=== PATIENT | female | born 1945 | race Caucasian/White ===

== ENCOUNTER → 2024-01-08 | Outpatient (CLI) | payer OTHER, SELFPAY ==
[2024-01-08 14:09] LABS: OBS Card Expiration Date 2026/09; OBS Card Lot # 23001; OBS Performed By LAB; OBS QC OK? Yes
[2024-01-08 14:31] LABS: Parathyroid Hormone Intact 72.5 pg/ml (18.5-88.0)
[2024-01-08 14:32] LABS: Albumin, Serum 4.3 gm/dL (3.4-4.8); Anion Gap 5 (7-16); BUN/Creatinine Ratio 19 Ratio (12-20); Blood Urea Nitrogen 31 mg/dL (9-23); Calcium 9.6 mg/dL (8.3-10.6); Calcium (Corrected) 9.6 mg/dL (8.5-10.1); Carbon Dioxide 28.7 mMol/L (20.0-31.0); Chloride 108 mMol/L (98-107); Creatinine (Component) 1.6 mg/dL (0.6-1.3); Glucose 92 mg/dL (74-106); Osmolality,Calculated 289 (275-295); Phosphorous 3.5 mg/dL (2.4-5.1); Potassium 4.9 mMol/L (3.4-5.1); Sodium 142 mMol/L (136-145); eGFR 33 See Note
[2024-01-08 15:20] LABS: OBS Developer Lot # 23003; Occult Blood, Stool Positive (Negative); Occult Blood, Stool #2 Positive (Negative); Occult Blood, Stool #3 Negative (Negative)
== END | disposition home or self-care (01) ==
PROVIDERS: PCP Internal Medicine; Referring Provider Internal Medicine; Visit Provider Internal Medicine
DX: N18.30 Chronic kidney disease, stage 3 unspecified (principal); Z12.11 Encounter for screening for malignant neoplasm of colon
CPT/HCPCS: 36415; 80069; 82270; 83970

== ENCOUNTER 2024-02-20 23:06 | Emergency (ER) | payer OTHER, SELFPAY ==
[2024-02-20 23:07] VITALS: BMI 25.8
[2024-02-20 23:12] VITALS: BP 161/95; PULSE 73; RESP 22; TEMP 36.5; O2SAT 98
--- NOTE | 2024-02-20 23:18 | EKG_ITS ---
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
[2024-02-20 23:20] VITALS: BP 146/81; PULSE 65; RESP 20; TEMP 36.7; O2SAT 100
--- NOTE | 2024-02-20 23:33 | XR_ITS ---
Examination: PA chest single view Technique: Upright PA chest single view Exam date and time: February 20, 2024 1144 hrs. Comparison September 04, 2023 Indications: Shortness of breath today. Findings: Mild heart failure Mild enlargement cardiac contour Prominent vascular congestion with early septal edema at the lung bases Stable position cardiac leads 23 mm dense pneumonic consolidation versus pulmonary nodule in the right upper lobe Intact osseous structures Impression: Mild heart failure Findings most consistent with pneumonia in the right upper lobe, follow-up chest imaging is needed to document clearing of the focal parenchymal disease in the right upper lobe and exclude 23 mm pulmonary nodule
--- NOTE | 2024-02-20 23:33 | EDRME_ITS ---
Rapid Medical Screening Exam [facility] Arrival date/time: 02/20/24 23:06 78F with history of afib (has pacemaker/defib), asthma, and CHF presents to ED with several hours of SOB. Patient has had several days of nasal congestion, but denies cough. Chief Complaint: Shortness of Breath/Dyspnea Vital signs: Vital Signs Temperature 97.7 F 02/20/24 23:12 Pulse Rate 73 02/20/24 23:12 Respiratory Rate 22 H 02/20/24 23:12 Blood Pressure 161/95 H 02/20/24 23:12 Pulse Oximetry (%) 98 02/20/24 23:12 Oxygen Delivery Method Room Air 02/20/24 23:12
[2024-02-21] VITALS (7 sets, daily range): BP systolic 138–162; BP diastolic 87–113; PULSE 70–83; RESP 14–20; TEMP 36.3–36.8; O2SAT 97–100
[2024-02-21 00:03] LABS: Basophils % (Auto) 1 % (0-2.5); Eosinophils # (Auto) 0.2 Thou/mm3 (0.0-0.5); Eosinophils % (Auto) 3 % (0-10); Hematocrit 36.1 % (36.0-46.0); Hemoglobin 11.8 g/dL (12.0-16.0); Immature Granulocytes % (Auto) 0 % (0-0); Immature Granulocytes Auto 0.01 Thou/mm3 (0.00-0.00); Lymphocytes % (Auto) 21 % (10-50); Mean Corpuscular HGB Conc 32.7 g/dl (31.0-37.0); Mean Corpuscular Hemoglobin 31.1 pg (25.0-35.0); Mean Corpuscular Volume 95 fL (80-100); Monocytes # (Auto) 0.6 Thou/mm3 (0.0-0.8); Monocytes % (Auto) 12 % (0-12); Neutrophils # (Auto) 2.9 Thou/mm3 (1.8-7.7); Neutrophils % (Auto) 62 % (37-80); Nucleated Red Blood Cell % 0 /100 WBC (0); Platelet Count 156 Thou/mm3 (140-440); RDW Standard Deviation 48.5 fL (36.4-46.3); Red Blood Count 3.79 Miln/mm3 (4.00-5.20); White Blood Count 4.7 Thou/mm3 (3.6-11.0)
[2024-02-21 00:40] LABS: B-Type Natriuretic Peptide 249 pg/mL (0-100)
[2024-02-21 00:43] LABS: Alanine Aminotransferase 66 U/L (10-49); Albumin, Serum 4.2 gm/dL (3.4-4.8); Albumin/Globulin Ratio 1.7 (1.2-2.2); Alkaline Phosphatase 97 U/L (46-116); Anion Gap 10 (7-16); Aspartate Amino Transferase 73 U/L (0-34); BUN/Creatinine Ratio 19 Ratio (12-20); Bilirubin,Total 0.9 mg/dL (0.3-1.2); Blood Urea Nitrogen 26 mg/dL (9-23); Carbon Dioxide 22.9 mMol/L (20.0-31.0); Chloride 110 mMol/L (98-107); Creatinine (Component) 1.4 mg/dL (0.6-1.3); Estimated Creatinine Clearance 33.2 mL/min (>60); Globulin 2.5 gm/dL (2.3-3.5); Glucose 139 mg/dL (74-106); Magnesium 2.1 mg/dL (1.6-2.6); Osmolality,Calculated 291 (275-295); Potassium 4.1 mMol/L (3.4-5.1); Sodium 143 mMol/L (136-145); Total Protein 6.7 gm/dL (5.7-8.2); Troponin I < 0.020 ng/mL (0.0-0.045); eGFR 38 See Note
--- NOTE | 2024-02-21 02:33 | EKG_ITS ---
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
[2024-02-21 03:24] LABS: Troponin I < 0.020 ng/mL (0.0-0.045)
--- NOTE | 2024-02-21 06:17 | PD.EDSOB ---
ED SOB =RME/HPI General Chief Complaint: Shortness of Breath/Dyspnea Stated Complaint: SOB Time Seen by Provider: 02/21/24 05:56 Arrival date/time: 02/20/24 23:06 RME / HPI RME / HPI Narrative: 02/20/24 23:06 78F with history of afib (has pacemaker/defib), asthma, and CHF presents to ED with several hours of SOB. Patient has had several days of nasal congestion, but denies cough. DR. WATSON MAIN ED EVALUATION: 78 year old female with history of AFib, s/p pacemaker/ICD placement, nonischemic cardiomyopathy, asthma presents to the ED for evaluation of palpitations and shortness of breath. Reports yesterday after blowing the leaves on her lawn she felt short of breath that required taking a break. States symptoms had slightly improved and last night while laying in bed noted a pounding sensation in her chest again accompanied by feeling short of breath. Denies fevers, chills, cough, chest pain/pressure/tightness, sweats, abdominal pain, n/v/d or urinary symptoms. Related Data Home Medications ?Medication ?Instructions ?Recorded ?Confirmed albuterol sulfate 90 mcg/actuation 2 puff inhalation Q6HR PRN 09/24/14 09/04/23 aerosol inhaler (Proventil HFA) SHORTNESS OF BREATH OR WHEEZE #0 inhalations furosemide 40 mg tablet (Lasix) 40 mg PO 2 X WEEKLY #0 tabs 09/24/14 09/04/23 potassium chloride 8 mEq 8 meq PO EVERYOTHERDAY #0 tabs 09/24/14 09/04/23 tablet,extended release (Klor-Con) apixaban 5 mg tablet (Eliquis) 5 mg PO BID #0 tabs 09/15/15 09/04/23 atorvastatin 20 mg tablet (Lipitor) 20 mg PO HS #0 tabs 05/28/16 09/04/23 levothyroxine 25 mcg tablet 25 mcg PO QDAY 09/26/17 09/04/23 metoprolol succinate 50 mg 50 mg PO QDAY 12/26/19 09/04/23 tablet,extended release 24 hr olmesartan 20 mg tablet (Benicar) 20 mg PO QDAY 06/24/20 06/24/20 hydralazine 25 mg tablet 25 mg BID 09/04/23 09/04/23 Previous Rx's ?Medication ?Instructions ?Recorded prednisone 50 mg tablet 50 mg PO QDAY #5 tabs 09/04/23 Allergies Allergy/AdvReac Type Severity Reaction Status Date / Time No Known Allergies Allergy Verified 02/20/24 23:09 Review of Systems Review of Systems Narrative Review of Systems: Constitutional: DENIES; Fevers Eyes: DENIES; Loss of vision Head/Ear/Nose: DENIES; Loss of hearing Throat: DENIES; Dysphagia Cardiovascular: SEE HPI +pounding sensation in chest. DENIES; Chest pain, dyspnea or syncope Respiratory: DENIES; Shortness of breath Gastrointestinal: DENIES; Rectal bleeding or melena. Genitourinary: DENIES; Dysuria (painful or difficult urination) Musculoskeletal: DENIES; Arthralgia (pain in a joint),; Skin: DENIES; Rash Neurological: DENIES; Loss of function or movement Psychiatric: DENIES; recent major life stressor, emotional problem, illicit drug use or abuse Endocrinology: DENIES; Weight change Hematologic/Lymphatic: DENIES; Abnormal bruising Allergic/Immunologic: DENIES; Urticaria (hives) Past Medical History Past Medical History NEUROLOGIC: Positive Neurological Disorders and Migraine CARDIAC: Positive Cardiac Disorders (cardiac ablation), Cardiac Arrhythmia, Atrial Fibrillation, Hypercholesterolemia, Edema and Hypertension RESPIRATORY: Positive Asthma (inhaler prescription.) GASTROINTESTINAL: Positive Obesity GENITOURINARY: Positive Genitourinary Disorders REPRODUCTIVE: Positive Previous Pregnancies () MUSCULOSKELETAL: Positive Musculoskeletal Disorders and Arthritis ENDOCRINE: Positive Endocrine Disorders and Hypothyroidism OTHER HISTORY: Positive Hospitalization, Blood Transfusions, Chicken Pox, Measles, Mumps, Rubella ([place] Measles) and Cancer Family History FAMILY HISTORY: Positive Family Respiratory Disorders (Father had emphysema.), Family Cardiac Disorders (Mother afib/ brother afib.), Family Cancer (brother:testicular, mother:breast, sister:throat.) and Family Surgery (mom:lumpectomy,colostomy.) Surgical History SURGICAL: Positive Cardiac Surgery (cardiac ablation, cardioversion x2), Pacemaker (09/2017), Angiogram (12/26/2019), Ear Surgery and Eye Surgery (basal cell carcinoma side of left eye) Social History SMOKING STATUS: Never smoker ED Exam Narrative Physical exam: Physical Exam: General: The vital signs were reviewed. The patient is non-toxic, in no apparent distress and appears healthy with a patent airway, no respiratory distress and has no apparent circulatory problems. Head & Scalp: Normocephalic, atraumatic. Face: Appears normal and is without lesions, deformity. Ears: Left external pinna appears normal. Right external pinna appears normal. Eyes: The sclera is anicteric. No obvious photophobia. The Left and Right Orbit/Lid/Conjunctiva appears normal without swelling, discoloration or injection. Nose: The nose is without deformity, discharge or tenderness; Throat: Appears normal. The mucous membranes are pink and moist without exudates, redness or mass seen. The tongue appears normal. Neck: The neck is supple and no apparent mass or adenopathy. Chest: The chest wall is normal in size and symmetry and has no chest wall tenderness or crepitus. The patient displays normal ventilator effort without retractions, accessory muscle use and has adequate air movement bilaterally with no wheezes and no rales. Cardiovascular: Regular rate and rhythm; No murmurs, rubs, or gallops; Gastrointestinal: The abdomen appears normal. No obvious hernias or mass. The abdomen is soft and benign, non-distended, with no pain, no guarding and no rebound tenderness. Bowel sounds are present and normal sounding. No CVA tenderness. Genitourinary: Back/Spine: Nontender Extremities/Musculoskeletal/lymphatic: The bilateral upper and lower extremities are warm. There is no evidence of arterial insufficiency. There is no evidence of venous insufficiency/edema. The patient spontaneously moves bilateral upper and lower extremities with no pain and no limitation of movement. There is no apparent, injury or trauma. Skin: The skin is warm, dry and intact. No rashes. No petechia. No purpura. No abnormal bruising. The color is appropriate with no cyanosis. Mental status/Psychiatric: Mental status is appropriate for age. The patient has no apparent delusions, visual hallucinations, no apparent audible hallucinations. The patient has no apparent suicidal thoughts/ideation and no apparent homicidal thoughts/ideation. Neurological: The patient is awake, alert, interactive, cordial, cooperative and is oriented to name and situation. The patient follows commands and answers historical question with no impairment. There is no visual disturbance apparent. The pupils are equal and reactive bilaterally with normal eye movements and no diplopia The bilateral upper and lower extremities have normal strength, normal range of motion and normal functioning. The gait, station and balance appear to be baseline with no acute change Course Course Course Narrative: chest xray ordered to help determine etiology of shortness of breath. Quality Measures none Orders Category Date Time Status Bedside COVID-19 Antigen Test NOW Care 02/20/24 23:33 Completed Bedside Influenza A&B Antigen Test NOW Care 02/20/24 23:33 Completed EKG (ED ONLY) *Do not use* NOW Care 02/20/24 23:18 Completed EKG (ED ONLY) *Do not use* NOW Care 02/21/24 02:33 Completed Miscellaneous Nursing Order NOW Care 02/21/24 08:07 Active EKG (ED Only) Stat Exams 02/20/24 23:18 Draft EKG (ED Only) Stat Exams 02/21/24 02:33 Draft XR chest 1V portable Stat Exams 02/20/24 23:33 Completed B-Type Natriuretic Peptide Stat Lab 02/20/24 23:39 Completed CBC Stat Lab 02/20/24 23:39 Completed Comprehensive Metabolic Panel Stat Lab 02/20/24 23:39 Completed Magnesium Stat Lab 02/20/24 23:39 Completed Troponin I Stat Lab 02/20/24 23:39 Completed Troponin I Stat Lab 02/21/24 02:47 Completed Troponin I Stat Lab 02/21/24 06:49 Completed Furosemide Inj [Lasix Inj] Med 02/21/24 08:07 Discontinued 40 mg IVP X1 ONE Furosemide [Lasix Inj] Med 02/21/24 08:19 Discontinued 40 mg IM X1 ONE Reevaluation(s) Reevaluation #1: Patient remains clinically stable throughout the emergency department visit. We reviewed all the results, analysis, and treatment plans. Patient is amenable to discharge. Strict return precautions were outlined. Patient was discharged in stable condition. Time: 08:00 Vital Signs Vital signs: Vital Signs Temperature 97.7 F 02/20/24 23:12 Pulse Rate 73 02/20/24 23:12 Respiratory Rate 22 H 02/20/24 23:12 Blood Pressure 161/95 H 02/20/24 23:12 Pulse Oximetry (%) 98 02/20/24 23:12 Oxygen Delivery Method Room Air 02/20/24 23:12 Pulse ox is 98% on room air which is adequate. Shortness of Breath / Dyspnea MDM Narrative MDM Narrative:: Natasha Haywood am scribing for and in the presence of Dr. Watson. Patient is a 78-year-old who has a nonischemic cardiomyopathy per verbal report to Dr. Browne when he was called at 0745 hrs. Who comes in complaining of recurrent plunk and possible palpitations. She also reports some increased shortness of breath over the past couple days she has no shortness of breath at rest but does have increased dyspnea on exertion with working in the yard which she says is new. Patient is BNP is slightly bumped at 249. Chest x-ray has increased vascular region distribution and a questionable fluid collection in the right upper lung suggesting pneumonia and/or hours just CHF. Note patient has no sputum no fever no cold symptoms. Troponins x 3 were all negative. Monitor reveals a atrial paced rhythm with no arrhythmias extra beats since she has been on the monitor at this facility. Patient has transaminases which are elevated slightly as they have been for the past 3 months of uncertain etiology. Does not appear to be any significant change. Note her creatinines are slightly elevated in the past and today and no significant change along with the BUN. Patient has a mild anemia with hemoglobin 11.8 but the hemoglobin level is very consistent with the previous hemoglobins. The patient appears comfortable on the bed after discussion with Dr. Browne this is most likely a CHF exacerbation the patient then reports eating Fritos several times this past week and with that comes increased salt load and fluid retention most likely participate in the reason the BNP is elevated and we have a CHF exacerbation Plan this time give Lasix 40 mg IV push ambulate the patient discharged home to follow-up with a primary care doctor and Dr. Browne. After the Lasix patient went to the bathroom she ambulate without any difficulty O2 sats were 9798% she has no shortness of breath she feels good wants to go home and will follow-up with Dr. Andrade who was contacted and will recheck her in 2 days. Patient was asked to keep her weights daily and make sure she takes Lasix 40 mg every day every day of the week instead of 5 days a week. Patient data External records reviewed:: [facility] previous records (I reviewed ED visit on 09/04/2023) Clinical information provided by:: patient Social determinants that could affect healthcare access:: none Patient has the following chronic illnesses:: AFib, s/p pacemaker/ICD placement, asthma How is presenting disease/condition affected by chronic disease/condition?: exacerbated by Evaluation data The following diagnostics were reviewed and interpreted by me:: lab results, radiology exam(s) and EKG tracing(s) (EKG #1 02/20/2024 @ 23:58 shows Atrial paced, rate 69. EKG #2 02/21/2024 @ 02:48 shows Atrial paced, rate 69, no changes.) Lab and/or radiology exams considered but not ordered:: None Interpretation Summary: Ordering Physician: Ar Alvarenga PA-C Date of Service: 02/20/24 Procedure(s): XR chest 1V portable Accession Number(s): [id number] cc: Willam Graham MD; Ar Alvarenga PA-C~ Examination: PA chest single view Technique: Upright PA chest single view Exam date and time: February 20, 2024 1144 hrs. Comparison September 04, 2023 Indications: Shortness of breath today. Findings: Mild heart failure Mild enlargement cardiac contour Prominent vascular congestion with early septal edema at the lung bases Stable position cardiac leads 23 mm dense pneumonic consolidation versus pulmonary nodule in the right upper lobe Intact osseous structures Impression: Mild heart failure Findings most consistent with pneumonia in the right upper lobe, follow-up chest imaging is needed to document clearing of the focal parenchymal disease in the right upper lobe and exclude 23 mm pulmonary nodule Dictated By: Willam Graham MD Signed By: <Electronically signed by Willam Graham MD in OV> 02/20/24 2353 Medications / Prescriptions Medications or Prescriptions considered but not ordered:: None Medication administrations:: Medication Administration History Discontinued Medications Furosemide (Furosemide Inj 10 Mg/Ml 4ml Vial) 40 mg IVP X1 ONE Stop: 02/21/24 08:08 Last Admin: 02/21/24 08:20 Dose: Not Given Documented By: Non-Admin Reason: Cancelled by Provider Furosemide (Furosemide Inj 10 Mg/Ml Vial 2 Ml) 40 mg IM X1 ONE Stop: 02/21/24 08:20 Last Admin: 02/21/24 08:23 Dose: 40 mg Documented By: TAMICA Comments: [id number] medication scan number None Consultations Consultation(s) initiated? (list below): Yes Consultation #1 (Physician, Specialty, Details): I spoke with patients heddler Dr. Newton Browne. Discussed patients PMHx, HPI, ED course, exam findings, labs, and radiology results. Dr. Browne reports she had clean coronary arteries, nonischemic cardiomyopathy, and will follow up with the patient on an outpatient bases. Time: 07:45 Consultation #2 (Physician, Specialty, Details): I spoke with patients PCP Dr. López. Discussed patients HPI, ED course, exam findings, labs, and radiology results. States she will follow up with the patient in her office in 2 days. Time: 08:10 Diagnosis Shortness of Breath Differential Diagnosis: congestive heart failure, community acquired pneumonia, asthma with exacerbation and other (Viral illness, dehydration ) Most likely diagnosis given after review of the tests above:: Chronic renal insufficiency CHF exacerbation Nonischemic cardiomyopathy Elevated transaminitis level Palpitations Admission Indicated Admission indicated?: not indicated Admission Request Was there a request for admission?: No Disposition Plan Disposition Plan: Discharge Discharge Attestation Discharge Attestation: The patient and all family members were given an opportunity to ask questions and understood the discharge instructions. Discharge instructions specifically effects, indications for sooner follow up or return to the emergency department, and the expected course of current diagnosis. Patient condition: Stable Discharge Plan Plan Patient Disposition: HOME (Self Care) Prescriptions/Referrals Prescriptions/Med Rec: No Action furosemide [Lasix] 40 MG tablet 40 mg PO 2 X WEEKLY Qty: 0 potassium chloride [Klor-Con 8] 8 MEQ tablet extended release 8 meq PO EVERYOTHERDAY Qty: 0 albuterol sulfate [Proventil HFA] 6.7 GM HFA aerosol inhaler 2 puff Inhalation Q6HR PRN (Reason: SHORTNESS OF BREATH OR WHEEZE) Qty: 0 Eliquis 5 MG tablet 5 mg PO BID Qty: 0 Hold Instructions: Resume on 01/17/20. atorvastatin [Lipitor] 20 MG tablet 20 mg PO HS Qty: 0 levothyroxine 25 mcg Tablet 25 mcg PO QDAY metoprolol succinate 50 mg Tablet Extended Release 24 Hr 50 mg PO QDAY olmesartan [Benicar] 20 mg Tablet 20 mg PO QDAY Rx Instructions: NO LONGER TAKES MEDICATION hydralazine 25 mg tablet 25 mg BID Patient Comments: TAKE 1 TABLET BY MOUTH TWICE A DAY prednisone 50 mg tablet 50 mg PO QDAY Qty: 5 0RF Referrals: Maribel,Nirupama, MD [Primary Care Provider] - In 1 week Problem List Clinical Impression: CHF exacerbation, Cardiomyopathy, nonischemic, Chronic renal insufficiency, Elevated transaminase level, Palpitations Patient/Caregiver Discharge Instructions Additional Instructions: It appears your shortness of breath is related to an exacerbation of congestive heart failure probably secondary to increased salt intake from diet. We went increase your Lasix to 40 mg every day as discussed with Dr. López Weigh yourself daily as we discussed and follow-up with Dr. López in 2 days. Today your medical workup was essentially negative your troponins were negative x 3. Your BNP was slightly elevated consistent with congestive heart failure. There are some mild transaminase elevations from your liver of uncertain etiology. This also could be related to your congestive heart failure. Print Language: [place]araguan Stand Alone Forms: Judith Award Info., Patient Portal Info Letter
--- NOTE | 2024-02-21 07:10 | PC.NURSE ---
Report received at this time; per report, pt here for SOB and palpitations. Pt's SOB resolved at this time and denies any pain. Pt has hx of A. fib and pacemaker. Pt on bed calm and cooperative. We are just waiting for the third troponin to result. Pt connected to monitors at this time.
[2024-02-21 07:15] LABS: Troponin I < 0.020 ng/mL (0.0-0.045)
[2024-02-21] MEDS: FUROSEMIDE INJ 10 MG/ML VIAL 2 ML 40 MG IM (08:23)
== END 2024-02-21 09:19 | disposition home or self-care (01) ==
PROVIDERS: Emergency Medicine; Physician Assistant; Emergency Provider Emergency Medicine; PCP Internal Medicine
DX: I50.9 Heart failure, unspecified (principal); I42.8 Other cardiomyopathies; N18.9 Chronic kidney disease, unspecified; R74.01 Elevation of levels of liver transaminase levels; Z95.810 Presence of automatic (implantable) cardiac defibrillator; I48.91 Unspecified atrial fibrillation
CPT/HCPCS: 36415; 71045; 80053; 83735; 83880; 84484; 85025; 87400; 87811; 93005; 96372; 99284; J1940

== ENCOUNTER 2024-04-15 08:20 | Day surgery (SDC) | payer OTHER, SELFPAY ==
[2024-04-12 14:16] VITALS: BMI 26.6
[2024-04-15] VITALS (13 sets, daily range): BP systolic 81–138; BP diastolic 64–83; PULSE 69–76; RESP 11–20; TEMP 36.2–36.6; O2SAT 97–100; BMI 28.3
[2024-04-15] MEDS: Ampicillin Inj 2,000 MG in SODIUM CHLORIDE 0.9% (P) 100 ML 100 MG IV (09:00)
[2024-04-15] MEDS: SODIUM CHLORIDE 0.9% 250 ML 250 ML 20 ML IV (10:05)
[2024-04-15] MEDS: MIDAZOLAM INJ 1 MG/ML VIAL 2 ML (ASD USE ONLY) 2 MG IV (10:51)
[2024-04-15] MEDS: fentaNYL CIT INJ 50 mCg/ML AMP 2ML (ASD USE ONLY) IV (10:51)
[2024-04-15] MEDS: DiphenhydrAMINE INJ 50 MG/ML VIAL 25 MG IV (10:52)
[2024-04-15] MEDS: ONDANSETRON INJ 2 MG/ML INJ 2 ML 4 MG IV (10:53)
--- NOTE | 2024-04-15 11:15 | SUR.PHASEII ---
PT ARRIVED TO PACU, REPORT RECEIVED FROM ELAINE WEBB. PT RESPONDS TO VOICE AND DRIFTED BACK TO SLEEP. NO ACUTE DISTRESS NOTED.
--- NOTE | 2024-04-15 11:35 | SUR.PHASEII ---
PT IS MORE ALERT AND TOLERATING ORAL FLUID INTAKE.
--- NOTE | 2024-04-15 11:47 | SUR.PHASEII ---
PT ABLE TO AMBULATE INDEPENDTLY TO THE BATHROOM TO GET DRESS.
--- NOTE | 2024-04-15 11:50 | SUR.PHASEII ---
THIS CUTTER HELPER WAS GOING OVER DISCHARGED INSTRUCTIONS WITH PT'S DAUTHER WHILE PT IS IN THE BATHROOM GETTING DRESS. PT YELLED OUT FROM THE BATHROOM I FELL! THIS WRITIER WENT TO CHECK ON THE PT BUT THE BATHROOM WAS LOCKED. UC GOT THE MENDES AND UNLOCK THE BATHROOM DOOR, FOUND PT SITTING ON THE FLOOR WITH HER UNDERWEAR ON ONE OF HER ANKLE. WHEN ASKED IF SHE IS OKAY, THE PT STATED I'M FINE, I FELT A LITTLE PAIN ON MY HIP BUT IT'S GONE NOW. PT STATED SHE WAS SITTING ON THE CHAIR AND TRIED TO PUT ON HER UNDERWEAR AND THAT'S WHEN SHE FELL. PT STATED SHE DID NOT HIT HER HEAD AND SHE FEELS FINE. PT'S DAUGHTER WAS VERY UPSET AND STARTED USING PROFOUND WORDS TOWARDS STAFFING. STAFF ASSISTED PT UP AND ASSISTED WITH DRESSING THE PT. THE PT IS ABLE TO WALK WITH NO PAIN TO THE WHEELCHAIR. DR. ALEJANDRE ASSESSED THAT PT AND THE VITAL WERE STABLE HR 70, 98% ON ROOM AIRE, 123/71. PT AND DAUGHTER ADVICE TO GO TO THE EMERGENCY ROOM IF PT'S HIP STARTING TO SWELL UP, BRUISE BECAME PAINFUL. THE CUTTER HELPER PUSH PT OUT TO THE CAR AFTER DISCHARGED. PT IS ABLE TO GET UP INTO THE CAR WITH NO PAIN.
== END 2024-04-15 12:07 | disposition home or self-care (01) ==
PROVIDERS: PCP Internal Medicine; Referring Provider Specialist; Visit Provider Specialist
PROC: 0DBE8ZX Excision of Large Intestine, Via Natural or Artificial Opening Endoscopic, Diagnostic (ICD-10-PCS; CPT 45380; principal; 2024-04-15 10:15)
PROC: (CPT 43239; 2024-04-15 10:15)
DX: K64.9 Unspecified hemorrhoids (principal); K57.31 Diverticulosis of large intestine without perforation or abscess with bleeding
CPT/HCPCS: 45378; A4649; J0290; J1200; J1580; J2250; J2405; J3010; J7050

== ENCOUNTER → 2024-04-23 | Outpatient (CLI) | payer OTHER, SELFPAY ==
[2024-04-23 17:39] LABS: Collection Type, Urine Clean Catch
[2024-04-23 18:38] LABS: Basophils # (Auto) 0.1 Thou/mm3 (0.0-0.2); Basophils % (Auto) 1 % (0-2.5); Eosinophils # (Auto) 0.5 Thou/mm3 (0.0-0.5); Eosinophils % (Auto) 10 % (0-10); Hematocrit 38.1 % (36.0-46.0); Hemoglobin 12.4 g/dL (12.0-16.0); Immature Granulocytes % (Auto) 0 % (0-0); Immature Granulocytes Auto 0.01 Thou/mm3 (0.00-0.00); Lymphocytes # (Auto) 1.2 Thou/mm3 (1.0-4.8); Lymphocytes % (Auto) 26 % (10-50); Mean Corpuscular HGB Conc 32.5 g/dl (31.0-37.0); Mean Corpuscular Hemoglobin 30.9 pg (25.0-35.0); Mean Corpuscular Volume 95 fL (80-100); Monocytes # (Auto) 0.6 Thou/mm3 (0.0-0.8); Monocytes % (Auto) 13 % (0-12); Neutrophils # (Auto) 2.2 Thou/mm3 (1.8-7.7); Neutrophils % (Auto) 50 % (37-80); Nucleated Red Blood Cell % 0 /100 WBC (0); Platelet Count 176 Thou/mm3 (140-440); RDW Standard Deviation 49.9 fL (36.4-46.3); Red Blood Count 4.01 Miln/mm3 (4.00-5.20); White Blood Count 4.5 Thou/mm3 (3.6-11.0)
[2024-04-23 18:47] LABS: Parathyroid Hormone Intact 180.1 pg/ml (18.5-88.0)
[2024-04-23 18:50] LABS: Bacteria,Urine Rare; Bilirubin,Urine Negative (Negative); Blood,Urine Negative (Negative); Clarity,Urine Clear (Clear/Hazy); Color,Urine Yellow (Lt Yel-Yel); Glucose, Urine Negative (Negative); Ketones,Urine Negative (Negative); Leukocyte Esterase,Urine Positive (Negative); Nitrite,Urine Negative (Negative); PH,Urine 5.5 (5.0-7.0); Protein,Urine Negative (Neg - Trace); RBC,Urine 5 /hpf (0-3); Specific Gravity,Urine 1.024 (1.001-1.035); Squamous Epithelial Cell,Urine 1 /hpf (0-5); Urobilinogen,Urine Negative mg/dL (0.0-1.0); WBC,Urine 11 /hpf (0-5)
[2024-04-23 18:56] LABS: Anion Gap 9 (7-16); BUN/Creatinine Ratio 22 Ratio (12-20); Blood Urea Nitrogen 35 mg/dL (9-23); Cardiac Risk Estimate 3.1 RATIO (3.7-5.6); Chloride 106 mMol/L (98-107); Cholesterol 155 mg/dL (132-200); Creatinine (Component) 1.6 mg/dL (0.6-1.3); Glucose 85 mg/dL (74-106); HDL Cholesterol 50 mg/dL (40-60); LDL Cholesterol,Calculated 80 mg/dL (0-130); Osmolality,Calculated 295 (275-295); Phosphorous 4.3 mg/dL (2.4-5.1); Potassium 4.3 mMol/L (3.4-5.1); Sodium 145 mMol/L (136-145); Triglycerides 126 mg/dL (30-150); eGFR 33 See Note
== END | disposition home or self-care (01) ==
PROVIDERS: PCP Internal Medicine; Referring Provider Internal Medicine; Visit Provider Internal Medicine
DX: I12.9 Hypertensive chronic kidney disease with stage 1 through stage 4 chronic kidney disease, or unspecified chronic kidney disease (principal); N18.30 Chronic kidney disease, stage 3 unspecified; E78.5 Hyperlipidemia, unspecified
CPT/HCPCS: 36415; 80061; 80069; 81001; 83970; 84443; 85025

== ENCOUNTER 2024-06-19 15:36 | Emergency (ER) | payer OTHER, SELFPAY ==
--- NOTE | 2024-06-19 15:47 | EKG_ITS ---
[facility] Test Date: 2024-06-19 Pat Name: DANNY HANKS Department: Room: - Gender: Female Paramedical Aide: : 1945 Requested By: Eligio Ricardo Order Number: [id number] Reading MD: Eligio Ricardo Measurements Intervals [place] Rate: 69 P: 75 [place]: 167 QRS: -58 QRSD: 133 T: 41 QT: 453 QTc: 489 Interpretive Statements ELECTRONIC ATRIAL PACEMAKER ELECTRONIC VENTRICULAR PACEMAKER ABNORMAL RHYTHM ECG Compared to ECG 02/21/2024 02:48:00 No significant changes /store/S0/[id number]
--- NOTE | 2024-06-19 15:47 | XR_ITS ---
Examination: PA lateral chest 2 views TECHNIQUE: Upright PA lateral chest 2 views Exam date and time: June 19, 2024 at 1601 hours Comparison February 20, 2024 INDICATIONS: Chest pain coughing today. FINDINGS: Mild prominence cardiac contour Satisfactory position cardiac leads. Bibasilar pneumonia. Suspicious for spiculated mass in the right upper lobe, at least 27 mm with mildly prominent right hilum No singh pulmonary edema Moderate osteopenia IMPRESSION: Bibasilar pneumonia Recommend CT chest post intravenous contrast follow-up to exclude 27 mm spiculated pulmonary mass right upper lobe
--- NOTE | 2024-06-19 15:48 | EDRME_ITS ---
Rapid Medical Screening Exam [facility] Arrival date/time: 06/19/24 15:36 78-year-old female with a history of hyperlipidemia, hypothyroidism, hypertension presents to the emergency room with a chief complaint of shortness of breath, cough, and intermittent fevers x 4 days that have progressively gotten worse. I have greeted and performed a focused initial assessment of this patient. A comprehensive ED assessment and evaluation of the patient, analysis of all test results, and completion of the medical decision making process will be conducted by additional ED providers. Chief Complaint: Shortness of Breath/Dyspnea Vital signs reviewed by provider: Yes
[2024-06-19 15:51] VITALS: BP 127/75; PULSE 70; RESP 24; TEMP 36.4; O2SAT 99; BMI 29.2
[2024-06-19 16:32] LABS: Bilirubin,Urine Negative (Negative); Blood,Urine Negative (Negative); Clarity,Urine Clear (Clear/Hazy); Color,Urine Yellow (Lt Yel-Yel); Glucose, Urine Negative (Negative); Hyaline Casts,Urine < 1 /hpf (0-1); Ketones,Urine Negative (Negative); Leukocyte Esterase,Urine Positive (Negative); Nitrite,Urine Negative (Negative); PH,Urine 5.5 (5.0-7.0); Protein,Urine Negative (Neg - Trace); RBC,Urine 2 /hpf (0-3); Specific Gravity,Urine 1.017 (1.001-1.035); Squamous Epithelial Cell,Urine 2 /hpf (0-5); Urobilinogen,Urine Negative mg/dL (0.0-1.0); WBC,Urine 4 /hpf (0-5)
[2024-06-19 16:33] LABS: Collection Type, Urine Clean Catch
[2024-06-19] MEDS: ALBUTEROL/IPRATROPIUM (Duoneb) RT SOL 3 ML NEBU INH (16:49)
[2024-06-19 16:50] VITALS: PULSE 70; RESP 18; O2SAT 98
[2024-06-19 17:03] LABS: Basophils # (Auto) 0.1 Thou/mm3 (0.0-0.2); Basophils % (Auto) 1 % (0-2.5); Eosinophils # (Auto) 0.1 Thou/mm3 (0.0-0.5); Eosinophils % (Auto) 1 % (0-10); Hematocrit 39.2 % (36.0-46.0); Hemoglobin 12.7 g/dL (12.0-16.0); Immature Granulocytes % (Auto) 1 % (0-0); Immature Granulocytes Auto 0.05 Thou/mm3 (0.00-0.00); Lymphocytes # (Auto) 1.1 Thou/mm3 (1.0-4.8); Lymphocytes % (Auto) 11 % (10-50); Mean Corpuscular HGB Conc 32.4 g/dl (31.0-37.0); Mean Corpuscular Hemoglobin 31.6 pg (25.0-35.0); Mean Corpuscular Volume 98 fL (80-100); Monocytes # (Auto) 0.9 Thou/mm3 (0.0-0.8); Monocytes % (Auto) 9 % (0-12); Neutrophils # (Auto) 7.6 Thou/mm3 (1.8-7.7); Neutrophils % (Auto) 78 % (37-80); Nucleated Red Blood Cell % 0 /100 WBC (0); Platelet Count 202 Thou/mm3 (140-440); RDW Standard Deviation 49.8 fL (36.4-46.3); Red Blood Count 4.02 Miln/mm3 (4.00-5.20); White Blood Count 9.8 Thou/mm3 (3.6-11.0)
[2024-06-19 17:13] LABS: INR 1.3 (0.9-1.3); Partial Thromboplastin Time 37.3 Seconds (22.0-36.0); Prothrombin Time 13.5 Seconds (9.0-12.2)
[2024-06-19 17:15] LABS: B-Type Natriuretic Peptide 208 pg/mL (0-100)
[2024-06-19] MEDS: DEXAMETHASONE SOD PHOS INJ 10 MG/ML VIAL PO (17:28)
[2024-06-19 17:49] LABS: Alanine Aminotransferase 31 U/L (10-49); Albumin, Serum 4.3 gm/dL (3.4-4.8); Albumin/Globulin Ratio 1.5 (1.2-2.2); Alkaline Phosphatase 100 U/L (46-116); Anion Gap 10 (7-16); Aspartate Amino Transferase 36 U/L (0-34); BUN/Creatinine Ratio 14 Ratio (12-20); Bilirubin,Total 1.4 mg/dL (0.3-1.2); Blood Urea Nitrogen 22 mg/dL (9-23); Calcium 9.6 mg/dL (8.3-10.6); Calcium (Corrected) 9.6 mg/dL (8.5-10.1); Chloride 106 mMol/L (98-107); Creatinine (Component) 1.6 mg/dL (0.6-1.3); Estimated Creatinine Clearance 29.8 mL/min (>60); Globulin 2.8 gm/dL (2.3-3.5); Glucose 91 mg/dL (74-106); Magnesium 2.3 mg/dL (1.6-2.6); Osmolality,Calculated 288 (275-295); Sodium 143 mMol/L (136-145); Total Protein 7.1 gm/dL (5.7-8.2); Troponin I < 0.020 ng/mL (0.0-0.045); eGFR 33 See Note
--- NOTE | 2024-06-19 18:24 | EDNOTE_ITS ---
ED SOB =RME/HPI General Chief Complaint: Shortness of Breath/Dyspnea Stated Complaint: SOB Time Seen by Provider: 06/19/24 18:14 Arrival date/time: 06/19/24 15:36 RME / HPI RME / HPI Narrative: 06/19/24 15:36 78-year-old female with a history of hyperlipidemia, hypothyroidism, hypertension presents to the emergency room with a chief complaint of shortness of breath, cough, and intermittent fevers x 4 days that have progressively gotte n worse. I have greeted and performed a focused initial assessment of this patient. A comprehensive ED assessment and evaluation of the patient, analysis of all test results, and completion of the medical decision making process will be conducted by additional ED providers. --------- This section includes all my notes and documentations, including HPI, PE, and ED course. Aiden Sinclair MD HPI: 78yo female with a history of aFib, HTN, HLD, asthma accompanied by her daughter presents to the ED for a chief complaint of shortness of breath. Patient states she started having a runny nose and sneezing after she mowed the lawn 1 week ago. She states since then, she's had cough that has progressively gotten worse, reporting she was short of breath today, so she came in for evaluation. Patient denies any fever, chills, N/V or any other associated symptoms. She does use an inhaler and nebulizer at home. She quit smoking cigarettes 50 years ago. No other complaints reported. ROS: All negative except as documented in HPI. Physical Exam: General: Alert and oriented. Is actively coughing. Eyes: Conjunctivae and lids clear. ENT: No nasal congestion. Neck: Supple. Heart: RRR. Lungs: No respiratory distress. Mildly decreased air movement with bilateral rales. Skin: Warm and dry. Neuro: Alert and oriented X 3. I reviewed all diagnostic test results. My interpretation of the EKG is paced rhythm. My interpretation of the chest x-ray is infiltrates. Blood tests and urine tests unremarkable. At this point, diagnoses include pneumonia. Treatment here included Duoneb, Decadron, Tylenol with Codeine, Azithromycin, Benadryl, and Prednisone. Significant improvement noted. Recommend outpatient treatment. Based on my best medical judgment, made decision no further evaluation or treatment indicated at this time. Patient understands and agrees to the discharge instructions customized and printed, see below. Discharge instructions from Dr. Sinclair: --No physical exertion for 3 days to help rest the lungs. ?No exposure to smoking or pets or dust or cold or humidity. --Zithromax and cefdinir to kill the germs causing the pneumonia. --Prednisone to help decrease the swelling in the airways. -- Neb treatment every 4-6 hours for 3 days to help keep the airways open. Then as needed for cough or shortness of breath. --Tylenol with codeine for severe cough for severe pain. --See a private doctor on 06/24/24 if not completely better. --Seek immediate medical care with worsening or with any concerns. Aiden Sinclair MD Related Data Home Medications ?Medication ?Instructions ?Recorded ?Confirmed albuterol sulfate 90 mcg/actuation 2 puff inhalation Q 6HR PRN 09/24/14 04/15/24 aerosol inhaler (Proventil HFA) SHORTNESS OF BREATH OR WHEEZE #0 inhalations furosemide 40 mg tablet (Lasix) 40 mg PO 2 X WEEKLY #0 tabs 09/24/14 04/15/24 potassium chloride 8 mEq 8 meq PO EVERYOTHERDAY #0 ta bs 09/24/14 04/15/24 tablet,extended release (Klor-Con) apixaban 5 mg tablet (Eliquis) 5 mg PO BID #0 tabs 02/1804/15/24 atorvastatin 20 mg tablet (Lipitor) 20 mg PO HS #0 tab s 05/28/16 04/15/24 levothyroxine 25 mcg tablet 25 mcg PO QDAY 09/26/17 metoprolol succinate 50 mg 50 mg PO QDAY 12/26/1904/06 tablet,extended release 24 hr olmesartan 20 mg tablet (Benicar) 20 mg PO QDAY 04/15/24 amiodarone 200 mg tablet 200 mg PO QDAY 04/15/2404/06 calcitriol 0.25 mcg capsule 0.25 mcg PO .qod 04/15/24 04/15/24 Previous Rx's ?Medication ?Instructions ?Recorded prednisone 50 mg tablet 50 mg PO QDAY #5 tabs acetaminophen 300 mg-codeine 30 mg 2 tab PO Q8H PRN pa in #20 tabs 06/19/24 tablet azithromycin 500 mg tablet 500 mg PO QDAY 3 days #3 ta bs 06/19/24 (Zithromax TRI-SONIA) cefdinir 300 mg capsule 300 mg PO BID #14 caps 06/19 prednisone 50 mg tablet 50 mg PO BID 2 days #4 tabs 06/19/24 Allergies Allergy/AdvReac Type Severity Reaction Status Date / Time No Known Allergies Allergy Verified 06/19/24 15:39 Review of Systems Review of Systems Systems Reviewed: All systems reviewed, normal except as documented Past Medical History Past Medical History NEUROLOGIC: Positive Neurological Disorders; Negative Seizures or Migraine CARDIAC: Positive Cardiac Disorders, Cardiac Arrhythmia, Atrial Fibrillation, Hypercholesterolemia, Edema and Hypertension; Negative Angina or Congestive Heart Failure RESPIRATORY: Positive Asthma; Negative Chronic Obstructive Pulmonary Disease (COPD), Pneumonia, Tuberculosis or Sleep Apnea GASTROINTESTINAL: Positive Obesity; Negative Gastrointestinal Disorders, Cirrhosis, Pancreatitis, Gastrointestinal Bleed, Colitis, Ulcerative Colitis, Diverticulitis, Diverticulosis, Ulcer, Colorectal Cancer, Hiatal Hernia, Hemorrhoids or Gastroesophageal Reflux Disease GENITOURINARY: Negative Genitourinary Disorders, Renal Disease, Kidney Stones or Prostate Cancer REPRODUCTIVE: Positive Previous Pregnancies; Negative Breast Cancer or Testicular Cancer MUSCULOSKELETAL: Positive Musculoskeletal Disorders and Arthritis; Negative Bone Cancer ENT: Negative Cataracts ENDOCRINE: Positive Endocrine Disorders and Hypothyroidism; Negative Diabetes Mellitus Type 1, Diabetes Mellitus Type 2, Turner's Syndrome, [place] Trevose's Disease or Adrenal Disease HEMATOLOGIC: Negative Blood Disorders, Anemia, Leukemia, Hemophilia, Thalassemia, Sickle Cell Disease or Clotting Problems OTHER HISTORY: Positive Hospitalization, Blood Transfusions, Chicken Pox, Measles, Mumps, Rubella (Portuguese Measles) and Cancer; Negative Autoimmune Disease, Down Syndrome, Developmental Delay, Shingles, Falls, Blood Transfusion Reaction, Anesthesia Reactions, Organ Transplant, Chemotherapy, Radiation Therapy, Hyperbaric Therapy, Breast Cancer, Cervical Cancer, Colorectal Cancer, Lung Cancer, Ovarian Cancer, Prostate Cancer or Testicular Cancer Family History FAMILY HISTORY: Positive Family Respiratory Disorders, Family Cardiac Disorders, Family Cancer and Family Surgery; Negative Family Psychiatric Problems, Family Gastrointestinal Problems or Family Anesthesia Reaction Surgical History SURGICAL: Positive Cardiac Surgery, Pacemaker (checked every 3 months), Angiogram, Ear Surgery and Eye Surgery; Negative Endocrine Surgery, Thyroidectomy, Tympanostomy Tube, Nose Surgery, Oral Surgery, Tonsillectomy, Adenoidectomy, Cochlear Implant, Corneal Transplant, Throat Surgery, Abdominal Surgery, Tracheostomy, Gastrostomy, Mastectomy, Lumpectomy, Hysterectomy, Tubal Ligation, Section or Organ Transplant Social History SMOKING STATUS: Former smoker ED Exam Narrative Physical exam: As noted in HPI. Course Course Course Narrative: CXR is ordered for determining the etiology of shortness of breath. Quality Measures none Orders Category Date Time Status EKG (ED ONLY) *Do not use* NOW Care 06/19/24 15:47 Completed EKG (ED Only) Stat Exams 06/19/24 15:47 Draft XR chest 2V Stat Exams 06/19/24 15:47 Completed B-Type Natriuretic Peptide Stat Lab 06/19/24 16:41 Completed CBC Stat Lab 06/19/24 16:41 Completed Comprehensive Metabolic Panel Stat Lab 06/19/24 16:41 Completed Magnesium Stat Lab 06/19/24 16:41 Completed Partial Thromboplastin Time Stat Lab 06/19/24 16:41 Completed Prothrombin Time with INR Stat Lab 06/19/24 16:41 Completed Troponin I Stat Lab 06/19/24 16:41 Completed Urinalysis Stat Lab 06/19/24 15:57 Completed ACETAMINOPHEN w/COD 300-30 [Tylenol w/Cod #3] Med 06/19/24 18:25 Discontinued 2 tab PO X1 ONE Albuterol/Ipratr Rt Kristi [Duoneb Rt Kristi] Med 06/19/24 15:47 Discontinued 3 ml INH X1 ONE Azithromycin Po [Zithromax PO] Med 06/19/24 18:25 Discontinued 500 mg PO X1 ONE Dexamethasone Inj [Decadron Inj] Med 06/19/24 15:47 Discontinued 10 mg PO X1 ONE DiphenhydrAMINE [Benadryl] Med 06/19/24 18:25 Discontinued 25 mg PO X1 ONE predniSONE Med 06/19/24 18:25 Discontinued 60 mg PO X1 ONE Vital Signs Vital signs: Vital Signs Temperature 97.6 F 06/19/24 15:51 Pulse Rate 70 06/19/24 15:51 Respiratory Rate 24 H 06/19/24 15:51 Blood Pressure 127/75 06/19/24 15:51 Pulse Oximetry (%) 99 06/19/24 15:51 Oxygen Delivery Method Room Air 06/19/24 15:51 Shortness of Breath / Dyspnea MDM Narrative MDM Narrative:: Coleman Attestation: 06/19/24 - I, Jackie Fabian am scribing for and in the presence of Dr. Sinclair. Patient data External records reviewed:: [facility] previous records (Per chart review, patient was seen here on 02/21/24 for CHF exacerbation.) Clinical information provided by:: patient Social determinants that could affect healthcare access:: substance use (history of tobacco use) Patient has the following chronic illnesses:: aFib, HTN, HLD, asthma How is presenting disease/condition affected by chronic disease/condition?: exacerbated by Evaluation data The following diagnostics were reviewed and interpreted by me:: lab results, radiology exam(s) and EKG tracing(s) Lab and/or radiology exams considered but not ordered:: none Interpretation Summary: Pneumonia Medications / Prescriptions Medications or Prescriptions considered but not ordered:: none Medication administrations:: Medication Administration History Discontinued Medications Acetaminophen/Codeine Phosphate (Acetaminophen W/Cod 300-30 Tablet) 2 tab PO X1 ONE Stop: 06/19/24 18:26 Albuterol/Ipratropium (Albuterol/Ipratropium (Duoneb) Rt Kristi 3 Ml Nebu) 3 ml INH X1 ONE Stop: 06/19/24 15:48 Last Admin: 06/19/24 16:49 Dose: 3 ml Documented By: [facility] Azithromycin (Azithromycin 250 Mg Tablet) 500 mg PO X1 ONE Stop: 06/19/24 18:26 Dexamethasone Sodium Phosphate (Dexamethasone Sod Phos Inj 10 Mg/Ml Vial) 10 mg PO X1 ONE Stop: 06/19/24 15:48 Last Admin: 06/19/24 17:28 Dose: 10 mg Documented By: Diphenhydramine HCl (Diphenhydramine 25 Mg Capsule) 25 mg PO X1 ONE Stop: 06/19/24 18:26 Prednisone (Prednisone 20 Mg Tablet) 60 mg PO X1 ONE Stop: 06/19/24 18:26 Duoneb, Decadron, Tylenol with Codeine, Azithromycin, Benadryl, Prednisone Consultations Consultation(s) initiated? (list below): No Diagnosis Shortness of Breath Differential Diagnosis: acute exacerbation of chronic obstructive airways disease, congestive heart failure, community acquired pneumonia, asthma with exacerbation and pulmonary embolism Most likely diagnosis given after review of the tests above:: Pneumonia Admission Indicated Admission indicated?: not indicated Explain why admission is indicated or not indicated:: With significant improvement, there was no indication for admission. Admission Request Was there a request for admission?: No Disposition Plan Disposition Plan: Discharge Discharge Attestation Discharge Attestation: The patient and all family members were given an opportunity to ask questions and understood the discharge instructions. Discharge instructions specifically effects, indications for sooner follow up or return to the emergency department, and the expected course of current diagnosis. Patient condition: Stable Discharge Plan Plan Patient Disposition: HOME (Self Care) Prescriptions/Referrals Prescriptions/Med Rec: New acetaminophen-codeine 300-30 mg tablet 2 tab PO Q8H MDD 6 PRN (Reason: pain) Qty: 20 0RF prednisone 50 mg tablet 50 mg PO BID 2 Days Qty: 4 0RF cefdinir 300 mg capsule 300 mg PO BID Qty: 14 0RF azithromycin [Zithromax TRI-SONIA] 500 mg tablet 500 mg PO QDAY 3 Days Qty: 3 0RF No Action furosemide [Lasix] 40 MG tablet 40 mg PO 2 X WEEKLY Qty: 0 potassium chloride [Klor-Con 8] 8 MEQ tablet extended release 8 meq PO EVERYOTHERDAY Qty: 0 albuterol sulfate [Proventil HFA] 6.7 GM HFA aerosol inhaler 2 puff Inhalation Q6HR PRN (Reason: SHORTNESS OF BREATH OR WHEEZE) Qty: 0 Eliquis 5 MG tablet 5 mg PO BID Qty: 0 atorvastatin [Lipitor] 20 MG tablet 20 mg PO HS Qty: 0 levothyroxine 25 mcg Tablet 25 mcg PO QDAY metoprolol succinate 50 mg Tablet Extended Release 24 Hr 50 mg PO QDAY olmesartan [Benicar] 20 mg Tablet 20 mg PO QDAY Rx Instructions: NO LONGER TAKES MEDICATION amiodarone 200 mg tablet 200 mg PO QDAY calcitriol 0.25 mcg capsule 0.25 mcg PO .qod prednisone 50 mg tablet 50 mg PO QDAY Qty: 5 0RF Referrals: Mahesh López MD [Primary Care Provider] - In 1 week Problem List Clinical Impression: Pneumonia Patient/Caregiver Discharge Instructions Discharge Activity: activity as tolerated Education Materials: ED Pneumonia (Adult) Additional Instructions: Discharge instructions from Dr. Sinclair: --No physical exertion for 3 days to help rest the lungs. ?No exposure to smoking or pets or dust or cold or humidity. --Zithromax and cefdinir to kill the germs causing the pneumonia. --Prednisone to help decrease the swelling in the airways. -- Neb treatment every 4-6 hours for 3 days to help keep the airways open. Then as needed for cough or shortness of breath. --Tylenol with codeine for severe cough for severe pain. --See a private doctor on 06/24/24 if not completely better. --Seek immediate medical care with worsening or with any concerns. Print Language: Turkish Stand Alone Forms: Judith Award Info., Patient Portal Info Letter
[2024-06-19] MEDS: ACETAMINOPHEN w/COD 300-30 TABLET 2 TAB PO (18:45)
[2024-06-19] MEDS: predniSONE 20 MG TABLET 60 MG PO (18:45)
[2024-06-19] MEDS: AZITHROMYCIN 250 MG TABLET 500 MG PO (18:45)
[2024-06-19] MEDS: DiphenhydrAMINE 25 MG CAPSULE PO (18:46)
[2024-06-19 18:56] VITALS: PULSE 71; RESP 20; O2SAT 99
[2024-06-19] MEDS: SODIUM CHLORIDE RT SOL 0.9% 3 ML NEBU INH (18:56)
[2024-06-19] MEDS: LEVALBUTEROL RT 1.25 MG/0.5 ML NEBU INH (18:56)
== END 2024-06-19 19:57 | disposition home or self-care (01) ==
PROVIDERS: Nurse Practitioner Family; Emergency Provider Emergency Medicine; PCP Internal Medicine
DX: J18.9 Pneumonia, unspecified organism (principal); E03.9 Hypothyroidism, unspecified; E87.5 Hyperkalemia; I10 Essential (primary) hypertension; J45.909 Unspecified asthma, uncomplicated; Z87.891 Personal history of nicotine dependence
CPT/HCPCS: 36415; 71046; 80053; 81001; 83735; 83880; 84484; 85025; 85610; 85730; 93005; 94640; 99284; A9270; J1100; J7512

== ENCOUNTER 2024-06-23 12:33 | Emergency (ER) | payer OTHER, SELFPAY ==
[2024-06-23 12:46] VITALS: BP 130/75; PULSE 70; RESP 22; TEMP 36.5; O2SAT 99
--- NOTE | 2024-06-23 12:52 | EKG_ITS ---
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
--- NOTE | 2024-06-23 12:52 | EDRME_ITS ---
Rapid Medical Screening Exam [facility] Arrival date/time: 06/23/24 12:33 78-year-old female with recent diagnosis of pneumonia presents to the emergency department for complaints of shortness of breath and cough Chief Complaint: Shortness of Breath/Dyspnea Vital signs: Vital Signs Temperature 97.7 F 06/23/24 12:46 Pulse Rate 70 06/23/24 12:46 Respiratory Rate 22 H 06/23/24 12:46 Blood Pressure 130/75 06/23/24 12:46 Pulse Oximetry (%) 99 06/23/24 12:46 Oxygen Delivery Method Room Air 06/23/24 12:46
--- NOTE | 2024-06-23 12:52 | XR_ITS ---
Examination: PA lateral chest 2 views Technique: Upright PA lateral chest 2 views Exam date and time: June 23, 2024 1304 hrs. Comparison June 19, 2024 Indications: Coughing and congestion this week. Findings: Moderate enlargement cardiac contour Cardiac leads satisfactory position Mild vascular congestion. Early pneumonia right base Moderate osteopenia Impression: Early pneumonia right base
[2024-06-23 13:12] LABS: Basophils % (Auto) 0 % (0-2.5); Eosinophils # (Auto) 0.1 Thou/mm3 (0.0-0.5); Eosinophils % (Auto) 1 % (0-10); Hematocrit 38.5 % (36.0-46.0); Hemoglobin 12.7 g/dL (12.0-16.0); Immature Granulocytes % (Auto) 1 % (0-0); Immature Granulocytes Auto 0.05 Thou/mm3 (0.00-0.00); Lymphocytes # (Auto) 1.3 Thou/mm3 (1.0-4.8); Lymphocytes % (Auto) 13 % (10-50); Mean Corpuscular Hemoglobin 31.2 pg (25.0-35.0); Mean Corpuscular Volume 95 fL (80-100); Monocytes # (Auto) 0.8 Thou/mm3 (0.0-0.8); Monocytes % (Auto) 8 % (0-12); Neutrophils # (Auto) 7.5 Thou/mm3 (1.8-7.7); Neutrophils % (Auto) 77 % (37-80); Nucleated Red Blood Cell % 0 /100 WBC (0); Platelet Count 245 Thou/mm3 (140-440); RDW Standard Deviation 48.5 fL (36.4-46.3); Red Blood Count 4.07 Miln/mm3 (4.00-5.20); White Blood Count 9.8 Thou/mm3 (3.6-11.0)
[2024-06-23 13:52] LABS: B-Type Natriuretic Peptide 159 pg/mL (0-100)
[2024-06-23 13:54] LABS: Alanine Aminotransferase 43 U/L (10-49); Albumin/Globulin Ratio 1.5 (1.2-2.2); Alkaline Phosphatase 82 U/L (46-116); Anion Gap 8 (7-16); Aspartate Amino Transferase 40 U/L (0-34); BUN/Creatinine Ratio 21 Ratio (12-20); Bilirubin,Total 0.7 mg/dL (0.3-1.2); Blood Urea Nitrogen 34 mg/dL (9-23); Calcium 9.3 mg/dL (8.3-10.6); Calcium (Corrected) 9.3 mg/dL (8.5-10.1); Carbon Dioxide 27.3 mMol/L (20.0-31.0); Chloride 107 mMol/L (98-107); Creatinine (Component) 1.6 mg/dL (0.6-1.3); Globulin 2.6 gm/dL (2.3-3.5); Glucose 98 mg/dL (74-106); Osmolality,Calculated 290 (275-295); Potassium 3.6 mMol/L (3.4-5.1); Sodium 142 mMol/L (136-145); Total Protein 6.6 gm/dL (5.7-8.2); Troponin I < 0.020 ng/mL (0.0-0.045); eGFR 33 See Note
[2024-06-23 15:34] VITALS: O2SAT 96
[2024-06-23 17:03] VITALS: BP 160/95; PULSE 70; RESP 18; TEMP 36.6; O2SAT 95
--- NOTE | 2024-06-23 17:13 | PD.EDADULT ---
ED General RME/HPI General Chief complaint: Shortness of Breath/Dyspnea Stated complaint: SEVERE SOB; DX'D W/ PNA 06/19, ON ATB Time Seen by Provider: 06/23/24 17:03 Arrival date/time: 06/23/24 12:33 CC: Fatigue from coughing up phlegm HPI ongoing for the past 3 to 4 days. The patient was here on 19 June 2024 diagnosed with pneumonia and sent home with antibiotics and 2 days worth of steroids now she returns today, stating that she has struggling after coughing so hard her cough up the phlegm . Patient denies shortness of breath or difficulty speaking. Denies any chest pain or fever. Patient is awake alert oriented very pleasant nontoxic-appearing RME / HPI RME / HPI narrative: 06/23/24 12:33 78-year-old female with recent diagnosis of pneumonia presents to the emergency department for complaints of shortness of breath and cough Related Data Home Medications ?Medication ?Instructions ?Recorded ?Confirmed albuterol sulfate 90 mcg/actuation 2 puff inhalation Q6HR PRN 09/24/14 04/15/24 aerosol inhaler (Proventil HFA) SHORTNESS OF BREATH OR WHEEZE #0 inhalations furosemide 40 mg tablet (Lasix) 40 mg PO 2 X WEEKLY #0 tabs 09/24/14 04/15/24 potassium chloride 8 mEq 8 meq PO EVERYOTHERDAY #0 tabs 09/24/14 04/15/24 tablet,extended release (Klor-Con) apixaban 5 mg tablet (Eliquis) 5 mg PO BID #0 tabs 09/15/15 04/15/24 atorvastatin 20 mg tablet (Lipitor) 20 mg PO HS #0 tabs 05/28/16 04/15/24 levothyroxine 25 mcg tablet 25 mcg PO QDAY 09/26/17 04/15/24 metoprolol succinate 50 mg 50 mg PO QDAY 12/26/19 04/15/24 tablet,extended release 24 hr olmesartan 20 mg tablet (Benicar) 20 mg PO QDAY 06/24/20 04/15/24 amiodarone 200 mg tablet 200 mg PO QDAY 04/15/24 04/15/24 calcitriol 0.25 mcg capsule 0.25 mcg PO .qod 04/15/24 04/15/24 Previous Rx's ?Medication ?Instructions ?Recorded prednisone 50 mg tablet 50 mg PO QDAY #5 tabs 09/04/23 acetaminophen 300 mg-codeine 30 mg 2 tab PO Q8H PRN pain #20 tabs 06/19/24 tablet cefdinir 300 mg capsule 300 mg PO BID #14 caps 06/19/24 prednisone 20 mg tablet See Taper PO BID 3 days #6 tabs 06/23/24 Allergies Allergy/AdvReac Type Severity Reaction Status Date / Time No Known Allergies Allergy Verified 06/23/24 12:37 Review of Systems Review of Systems Narrative Review of Systems: GEN: No fever, no chills, no weight loss EYES: No discharge, no visual changes, no pain HEENT: No ear pain, no congestion, no sore throat PULM: No shortness of breath, + cough, no congestion CV: No chest pain, no dyspnea on exertion, no palpitations GI: No nausea, no vomiting, no diarrhea, no pain, no constipation : No frequency, no urgency, no dysuria MUSC/SKEL: No joint pain, no back pain SKIN: No rash PSYCH: No hallucinations, no depression HEME/LYMPH: No easy bleeding or bruising tendencies NEURO: No weakness, no headache Past Medical History Past Medical History NEUROLOGIC: Positive Neurological Disorders; Negative Seizures or Migraine CARDIAC: Positive Cardiac Disorders, Cardiac Arrhythmia, Atrial Fibrillation, Hypercholesterolemia, Edema and Hypertension; Negative Angina or Congestive Heart Failure RESPIRATORY: Positive Asthma; Negative Chronic Obstructive Pulmonary Disease (COPD), Pneumonia, Tuberculosis or Sleep Apnea GASTROINTESTINAL: Positive Obesity; Negative Gastrointestinal Disorders, Cirrhosis, Pancreatitis, Gastrointestinal Bleed, Colitis, Ulcerative Colitis, Diverticulitis, Diverticulosis, Ulcer, Colorectal Cancer, Hiatal Hernia, Hemorrhoids or Gastroesophageal Reflux Disease GENITOURINARY: Negative Genitourinary Disorders, Renal Disease, Kidney Stones or Prostate Cancer REPRODUCTIVE: Positive Previous Pregnancies; Negative Breast Cancer or Testicular Cancer MUSCULOSKELETAL: Positive Musculoskeletal Disorders and Arthritis; Negative Bone Cancer ENT: Negative Cataracts ENDOCRINE: Positive Endocrine Disorders and Hypothyroidism; Negative Diabetes Mellitus Type 1, Diabetes Mellitus Type 2, Turner's Syndrome, Andrew's Disease or Adrenal Disease HEMATOLOGIC: Negative Blood Disorders, Anemia, Leukemia, Hemophilia, Thalassemia, Sickle Cell Disease or Clotting Problems OTHER HISTORY: Positive Hospitalization, Blood Transfusions, Chicken Pox, Measles, Mumps, Rubella ([place] Measles) and Cancer; Negative Autoimmune Disease, Down Syndrome, Developmental Delay, Shingles, Falls, Blood Transfusion Reaction, Anesthesia Reactions, Organ Transplant, Chemotherapy, Radiation Therapy, Hyperbaric Therapy, Breast Cancer, Cervical Cancer, Colorectal Cancer, Lung Cancer, Ovarian Cancer, Prostate Cancer or Testicular Cancer Family History FAMILY HISTORY: Positive Family Respiratory Disorders, Family Cardiac Disorders, Family Cancer and Family Surgery; Negative Family Psychiatric Problems, Family Gastrointestinal Problems or Family Anesthesia Reaction Surgical History SURGICAL: Positive Cardiac Surgery, Pacemaker (checked every 3 months), Angiogram, Ear Surgery and Eye Surgery; Negative Endocrine Surgery, Thyroidectomy, Tympanostomy Tube, Nose Surgery, Oral Surgery, Tonsillectomy, Adenoidectomy, Cochlear Implant, Corneal Transplant, Throat Surgery, Abdominal Surgery, Tracheostomy, Gastrostomy, Mastectomy, Lumpectomy, Hysterectomy, Tubal Ligation, Section or Organ Transplant Social History SMOKING STATUS: Former smoker ED Exam Narrative Physical exam: [General: Not in any acute distress Head normocephalic HEENT: Within acceptable limits Neck is supple nontender Chest equal chest rise nontender to palpation Respiratory: Clear to auscultation no wheezes crackles or rubs CV: Rate rhythm is regular no murmurs rubs or clicks Abdomen is soft nontender no masses positive bowel sounds all 4 quadrants Back: No CVA tenderness no spinous process tenderness from cervical spine thoracic and lumbar spine Skin: Intact no petechiae rash induration ulceration or crepitus Extremities: Moving all extremity against resistance cap refill less than 2 seconds neurosensory intact Neuro: Awake alert oriented x3 Glascow coma 15 no focal deficits] Course Quality Measures none Orders Category Date Time Status EKG (ED ONLY) *Do not use* NOW Care 06/23/24 12:52 Completed EKG (ED Only) Stat Exams 06/23/24 12:52 Draft XR chest 2V Stat Exams 06/23/24 12:52 Completed B-Type Natriuretic Peptide Stat Lab 06/23/24 13:02 Completed CBC Stat Lab 06/23/24 13:02 Completed Comprehensive Metabolic Panel Stat Lab 06/23/24 13:02 Completed Troponin I Stat Lab 06/23/24 13:02 Completed predniSONE Med 06/23/24 17:22 Discontinued 20 mg PO X1 ONE Vital Signs Vital signs: Vital Signs Temperature 97.7 F 06/23/24 12:46 Pulse Rate 70 06/23/24 12:46 Respiratory Rate 22 H 06/23/24 12:46 Blood Pressure 130/75 04/20/25 12:46 Pulse Oximetry (%) 99 06/23/24 12:46 Oxygen Delivery Method Room Air 06/23/24 12:46 Discharge Plan Plan Patient Disposition: HOME (Self Care) Patient condition on transfer: Stable Prescriptions/Referrals Prescriptions/Med Rec: New prednisone 20 mg tablet See Taper PO BID 3 Days Qty: 6 0RF Taper: Prednisone Taper 20 mg DAILY for 2 Days and 0 Hour 10 mg DAILY for 2 Days and 0 Hour 5 mg DAILY for 7 Days and 0 Hour No Action furosemide [Lasix] 40 MG tablet 40 mg PO 2 X WEEKLY Qty: 0 potassium chloride [Klor-Con 8] 8 MEQ tablet extended release 8 meq PO EVERYOTHERDAY Qty: 0 albuterol sulfate [Proventil HFA] 6.7 GM HFA aerosol inhaler 2 puff Inhalation Q6HR PRN (Reason: SHORTNESS OF BREATH OR WHEEZE) Qty: 0 Eliquis 5 MG tablet 5 mg PO BID Qty: 0 atorvastatin [Lipitor] 20 MG tablet 20 mg PO HS Qty: 0 levothyroxine 25 mcg Tablet 25 mcg PO QDAY metoprolol succinate 50 mg Tablet Extended Release 24 Hr 50 mg PO QDAY olmesartan [Benicar] 20 mg Tablet 20 mg PO QDAY Rx Instructions: NO LONGER TAKES MEDICATION amiodarone 200 mg tablet 200 mg PO QDAY calcitriol 0.25 mcg capsule 0.25 mcg PO .qod prednisone 50 mg tablet 50 mg PO QDAY Qty: 5 0RF acetaminophen-codeine 300-30 mg tablet 2 tab PO Q8H MDD 6 PRN (Reason: pain) Qty: 20 0RF cefdinir 300 mg capsule 300 mg PO BID Qty: 14 0RF Referrals: Mahesh López MD [Primary Care Provider] - In 1 week Problem List Clinical Impression: Cough, Pneumonia Patient/Caregiver Discharge Instructions Education Materials: ED Pneumonia (Adult) Additional Instructions: Take the medications as prescribed follow-up with Dr. Andrade. If there is worsening of symptoms return the emergency room for reevaluation. Print Language: Occitan Stand Alone Forms: Judith Award Info., Work/School Release, Patient Portal Info Letter PA/ELECTRIC ENGINE MECHANIC Supervising Physician PA/ELECTRIC ENGINE MECHANIC Supervising Physician: Reji Moulton ENP MDM Patient Acuity Low Acuity (complete MDM as needed) Clinical Information Provided by: patient and family Other: Recent diagnosis with pneumonia Medical Records reviewed [facility] Meds/Rx considered, not ordered None Labs/Rad/Tests considered, not ordered None Chronic Illness/Social Conditions which may negatively complicate care or outcome(s)-explain: None or not applicable EKG EKG Interpretation(s): EKG performed on 1256 shows a ventricular rate of 69 [place] interval 143 QRS of 170 QTc of 505 electronically paced rhythm. Labs Lab(s) Interpretation(s): CBC shows no leukocytosis anemia thrombocytopenia CMP shows no acute electrolyte imbalances, there is a narrow renal impairment BUN 34 creatinine 1.6. No transaminitis or T. bili elevation. BNP is 159. Troponin is negative Chest x-ray shows a right lower lobe pneumonia. Imaging Imaging Interpretation(s): With daughter more than anything is insistent upon getting something to help expectorate to make it easier to cough. They are already been on 1 to 2-day course of steroids discussed the case with Dr. Ochoa regular PCP who is seeing her tomorrow we will put her on her second 3-day course of steroids. Daughter and patient are comfortable with this plan. Medication Administration(s) Medication Administration History Discontinued Medications Prednisone (Prednisone 20 Mg Tablet) 20 mg PO X1 ONE Stop: 06/23/24 17:23 Last Admin: 06/23/24 17:34 Dose: 20 mg Documented By: TERRI None Diagnosis Differential Diagnosis ED Complaint MDM: Pneumonia cough URI
[2024-06-23 17:29] VITALS: BP 137/101; PULSE 70; RESP 18; TEMP 36.6; O2SAT 100
[2024-06-23] MEDS: predniSONE 20 MG TABLET PO (17:34)
== END 2024-06-23 17:38 | disposition home or self-care (01) ==
PROVIDERS: Nurse Practitioner Primary Care; Emergency Provider Family Medicine; PCP Internal Medicine
DX: J18.9 Pneumonia, unspecified organism (principal)
CPT/HCPCS: 36415; 71046; 80053; 83880; 84484; 85025; 93005; 99283; J7512

== ENCOUNTER → 2024-07-31 | Outpatient (CLI) | payer OTHER, SELFPAY ==
--- NOTE | 2024-07-31 13:51 | XR_ITS ---
Examination:Right hip AP, lateral, AP pelvis 3 views Technique: Hip AP lateral, AP pelvis, 3 views Exam date and time:July 23, 2024 1355 hours INDICATIONS: Patient fell 5 months ago with injury to the right hip, persistent right hip pain. FINDINGS: No radiopaque fracture or dislocation Left hip bones of the pelvis intact IMPRESSION: No acute hip or pelvic fracture.
== END | disposition home or self-care (01) ==
PROVIDERS: PCP Internal Medicine; Referring Provider Internal Medicine; Visit Provider Internal Medicine
DX: S79.911A Unspecified injury of right hip, initial encounter (principal); W19.XXXA Unspecified fall, initial encounter
CPT/HCPCS: 73502

== ENCOUNTER → 2024-08-23 | Outpatient (CLI) | payer OTHER, SELFPAY ==
[2024-08-23 11:38] LABS: Collection Type, Urine Clean Catch
[2024-08-23 12:10] LABS: Bilirubin,Urine Negative (Negative); Blood,Urine Negative (Negative); Clarity,Urine Clear (Clear/Hazy); Color,Urine Lt-Yellow (Lt Yel-Yel); Glucose, Urine Negative (Negative); Ketones,Urine Negative (Negative); Leukocyte Esterase,Urine Negative (Negative); Nitrite,Urine Negative (Negative); PH,Urine 5.5 (5.0-7.0); Protein,Urine Negative (Neg - Trace); RBC,Urine 2 /hpf (0-3); Squamous Epithelial Cell,Urine < 1 /hpf (0-5); Urobilinogen,Urine Negative mg/dL (0.0-1.0); WBC,Urine 1 /hpf (0-5)
[2024-08-23 12:10] LABS: Basophils # (Auto) 0.1 Thou/mm3 (0.0-0.2); Basophils % (Auto) 1 % (0-2.5); Eosinophils # (Auto) 0.3 Thou/mm3 (0.0-0.5); Eosinophils % (Auto) 6 % (0-10); Hematocrit 39.4 % (36.0-46.0); Hemoglobin 13.2 g/dL (12.0-16.0); Immature Granulocytes % (Auto) 0 % (0-0); Immature Granulocytes Auto 0.02 Thou/mm3 (0.00-0.00); Lymphocytes # (Auto) 1.3 Thou/mm3 (1.0-4.8); Lymphocytes % (Auto) 28 % (10-50); Mean Corpuscular HGB Conc 33.5 g/dl (31.0-37.0); Mean Corpuscular Hemoglobin 32.4 pg (25.0-35.0); Mean Corpuscular Volume 97 fL (80-100); Monocytes # (Auto) 0.7 Thou/mm3 (0.0-0.8); Monocytes % (Auto) 14 % (0-12); Neutrophils # (Auto) 2.4 Thou/mm3 (1.8-7.7); Neutrophils % (Auto) 51 % (37-80); Nucleated Red Blood Cell % 0 /100 WBC (0); Platelet Count 163 Thou/mm3 (140-440); RDW Standard Deviation 53.5 fL (36.4-46.3); Red Blood Count 4.08 Miln/mm3 (4.00-5.20); White Blood Count 4.8 Thou/mm3 (3.6-11.0)
[2024-08-23 12:21] LABS: Parathyroid Hormone Intact 114.4 pg/ml (18.5-88.0)
[2024-08-23 12:27] LABS: Alanine Aminotransferase 17 U/L (10-49); Albumin, Serum 4.4 gm/dL (3.4-4.8); Alkaline Phosphatase 76 U/L (46-116); Anion Gap 9 (7-16); Aspartate Amino Transferase 29 U/L (0-34); BUN/Creatinine Ratio 16 Ratio (12-20); Bilirubin,Direct 0.3 mg/dL (0.0-0.3); Bilirubin,Total 1.1 mg/dL (0.3-1.2); Blood Urea Nitrogen 29 mg/dL (9-23); Calcium 9.5 mg/dL (8.3-10.6); Carbon Dioxide 27.9 mMol/L (20.0-31.0); Cardiac Risk Estimate 2.7 RATIO (3.7-5.6); Chloride 107 mMol/L (98-107); Cholesterol 158 mg/dL (132-200); Creatinine (Component) 1.8 mg/dL (0.6-1.3); Glucose 95 mg/dL (74-106); HDL Cholesterol 59 mg/dL (40-60); LDL Cholesterol,Calculated 79 mg/dL (0-130); Osmolality,Calculated 292 (275-295); Phosphorous 3.5 mg/dL (2.4-5.1); Potassium 4.3 mMol/L (3.4-5.1); Sodium 144 mMol/L (136-145); Total Protein 6.5 gm/dL (5.7-8.2); Triglycerides 99 mg/dL (30-150); eGFR 28 See Note
== END | disposition home or self-care (01) ==
PROVIDERS: PCP Internal Medicine; Referring Provider Internal Medicine; Visit Provider Internal Medicine
DX: I12.9 Hypertensive chronic kidney disease with stage 1 through stage 4 chronic kidney disease, or unspecified chronic kidney disease (principal); N18.30 Chronic kidney disease, stage 3 unspecified; E78.5 Hyperlipidemia, unspecified; E03.9 Hypothyroidism, unspecified
CPT/HCPCS: 36415; 80048; 80061; 80069; 80076; 81001; 83970; 84100; 84443; 85025

== ENCOUNTER → 2024-10-23 | Outpatient (CLI) | payer OTHER, SELFPAY ==
[2024-10-23 13:59] LABS: Albumin, Serum 4.4 gm/dL (3.4-4.8); Anion Gap 9 (7-16); BUN/Creatinine Ratio 14 Ratio (12-20); Blood Urea Nitrogen 23 mg/dL (9-23); Calcium 10.1 mg/dL (8.3-10.6); Calcium (Corrected) 10.1 mg/dL (8.5-10.1); Carbon Dioxide 27.9 mMol/L (20.0-31.0); Chloride 105 mMol/L (98-107); Creatinine (Component) 1.7 mg/dL (0.6-1.3); Glucose 101 mg/dL (74-106); Osmolality,Calculated 286 (275-295); Phosphorous 4.2 mg/dL (2.4-5.1); Potassium 4.1 mMol/L (3.4-5.1); Sodium 142 mMol/L (136-145); eGFR 30 See Note
[2024-10-23 14:00] LABS: Parathyroid Hormone Intact 111.7 pg/ml (18.5-88.0)
== END | disposition home or self-care (01) ==
LOC: COPL 11:28
PROVIDERS: PCP Internal Medicine; Referring Provider Internal Medicine; Visit Provider Internal Medicine
DX: N18.30 Chronic kidney disease, stage 3 unspecified (principal)
CPT/HCPCS: 36415; 80069; 83970

== ENCOUNTER → 2024-11-21 | Outpatient (CLI) | payer OTHER, SELFPAY ==
--- NOTE | 2024-11-21 13:15 | XR_ITS ---
Examination: Screening digital mammography, bilateral Computer aided detection 3-D breast Tomosynthesis, bilateral Date and time of exam: November 21, 2024 1329 hours Compared to mammograms dating to February 12, 2018 Indication: Screening Technique: Nonmagnified MLO, CC views of the breasts to been obtained, reconstructed from 3-D Tomosynthesis images. R2 computer aided detection program utilized for evaluation of suspicious masses and/or abnormal calcifications. 3-D Tomosynthesis images obtained. Findings: Scattered areas of fibroglandular density. Breast biopsy marker retroareolar region right breast No interval suspicious masses Impression: BI-RADS category II: Benign Findings. Recommend 1 year follow-up mammogram.
--- NOTE | 2024-11-21 13:30 | XR_ITS ---
Examination: Bone densitometry Date and time of exam:November 21, 2024 1346 hours INDICATIONS: Menopause age 49 Technique: Lumbar spine and hip total bone mineralization values of an calculated. Peak reference and age match control results have been displayed. Findings: Lumbar spine total bone mineralization is1.185 gm/cm2. This is 1.3 standard deviations above peak reference. This is 3.9 standard deviations above age-matched controls. Hip total bone mineralization is 0.761 gm/cm2 This is 1.5 standard deviations below peak reference. This is 0.6 standard deviations above age-matched controls Impression: There is normal mineralization based on lumbar spine measurements. There is osteoporosis based on hip measurements Lumbar mineralization is decreased 3.6% compared with October 21, 2021 Hip mineralization is decreased 8.1% compared with October 21, 2021
== END | disposition home or self-care (01) ==
LOC: CDIM 13:11
PROVIDERS: PCP Internal Medicine; Referring Provider Internal Medicine; Visit Provider Internal Medicine
DX: Z12.31 Encounter for screening mammogram for malignant neoplasm of breast (principal); R92.323 Mammographic fibroglandular density, bilateral breasts; M81.0 Age-related osteoporosis without current pathological fracture
CPT/HCPCS: 77063; 77067; 77080

== ENCOUNTER → 2025-02-14 | Outpatient (CLI) | payer OTHER, SELFPAY ==
[2025-02-14 11:52] LABS: Basophils # (Auto) 0.0 Thou/mm3 (0.0-0.2); Basophils % (Auto) 1 % (0-2.5); Eosinophils # (Auto) 0.2 Thou/mm3 (0.0-0.5); Eosinophils % (Auto) 5 % (0-10); Hematocrit 42.3 % (36.0-46.0); Hemoglobin 13.8 g/dL (12.0-16.0); Immature Granulocytes Auto 0.01 Thou/mm3 (0.00-0.00); Lymphocytes # (Auto) 1.2 Thou/mm3 (1.0-4.8); Lymphocytes % (Auto) 23 % (10-50); Mean Corpuscular HGB Conc 32.6 g/dl (31.0-37.0); Mean Corpuscular Hemoglobin 31.9 pg (25.0-35.0); Mean Corpuscular Volume 98 fL (80-100); Monocytes # (Auto) 0.6 Thou/mm3 (0.0-0.8); Monocytes % (Auto) 12 % (0-12); Neutrophils # (Auto) 3.1 Thou/mm3 (1.8-7.7); Neutrophils % (Auto) 59 % (37-80); Nucleated Red Blood Cell # 0.00 Thou/mm3 (0.00-0.00); Nucleated Red Blood Cell % 0 /100 WBC (0); Platelet Count 184 Thou/mm3 (140-440); RDW Standard Deviation 50.7 fL (36.4-46.3); Red Blood Count 4.33 Miln/mm3 (4.00-5.20); White Blood Count 5.2 Thou/mm3 (3.6-11.0)
[2025-02-14 12:16] LABS: Glucose Estimated Average 114 mg/dL (80-131); Hemoglobin A1C 5.6 % Hgb (4.8-6.0)
[2025-02-14 12:17] LABS: Collection Type, Urine Clean Catch
[2025-02-14 12:37] LABS: Bacteria,Urine Rare; Bilirubin,Urine Negative (Negative); Blood,Urine Negative (Negative); Color,Urine Yellow (Lt Yel-Yel); Glucose, Urine Negative (Negative); Hyaline Casts,Urine 2 /hpf (0-1); Ketones,Urine Negative (Negative); Leukocyte Esterase,Urine Positive (Negative); Nitrite,Urine Negative (Negative); PH,Urine 6.0 (5.0-7.0); Protein,Urine Negative (Neg - Trace); RBC,Urine 4 /hpf (0-3); Specific Gravity,Urine 1.015 (1.001-1.035); Squamous Epithelial Cell,Urine 5 /hpf (0-5); Urobilinogen,Urine Negative mg/dL (0.0-1.0); WBC,Urine 21 /hpf (0-5)
[2025-02-14 12:42] LABS: Clarity,Urine Hazy (Clear/Hazy)
[2025-02-14 12:47] LABS: Creatinine MALB Rnd Ur 118 mg/dL (30-125); Microalbumin Creat Ratio 6 mg/gCrea (<30); Microalbumin, Random Urine 7 mg/L (0-300)
[2025-02-14 15:34] LABS: Parathyroid Hormone Intact 117.1 pg/ml (18.5-88.0)
[2025-02-14 22:02] LABS: Vitamin D 25 Hydroxy Total 67.0 ng/mL (7.3-40.2)
[2025-02-14 22:08] LABS: Alanine Aminotransferase 27 U/L (10-49); Albumin, Serum 4.7 gm/dL (3.4-4.8); Albumin/Globulin Ratio 2.2 (1.2-2.2); Alkaline Phosphatase 71 U/L (46-116); Anion Gap 12 (7-16); Aspartate Amino Transferase 36 U/L (0-34); BUN/Creatinine Ratio 15 Ratio (12-20); Bilirubin,Total 0.9 mg/dL (0.3-1.2); Blood Urea Nitrogen 29 mg/dL (9-23); Calcium 9.5 mg/dL (8.3-10.6); Calcium (Corrected) 9.5 mg/dL (8.5-10.1); Carbon Dioxide 27.9 mMol/L (20.0-31.0); Cardiac Risk Estimate 2.5 RATIO (3.7-5.6); Chloride 107 mMol/L (98-107); Cholesterol 162 mg/dL (132-200); Creatinine (Component) 1.9 mg/dL (0.6-1.3); Globulin 2.1 gm/dL (2.3-3.5); Glucose 97 mg/dL (74-106); HDL Cholesterol 66 mg/dL (40-60); LDL Cholesterol,Calculated 75 mg/dL (0-130); Osmolality,Calculated 298 (275-295); Potassium 4.2 mMol/L (3.4-5.1); Sodium 147 mMol/L (136-145); Thyroid Stimulating Hormone 3.40 uIU/mL (0.55-4.78); Total Protein 6.8 gm/dL (5.7-8.2); Triglycerides 104 mg/dL (30-150); Uric Acid 6.9 mg/dL (3.1-7.8); eGFR 26 See Note
== END | disposition home or self-care (01) ==
LOC: COPL 10:49
PROVIDERS: PCP Internal Medicine; Referring Provider Internal Medicine; Visit Provider Internal Medicine Cardiovascular Disease
DX: I12.9 Hypertensive chronic kidney disease with stage 1 through stage 4 chronic kidney disease, or unspecified chronic kidney disease (principal); N18.30 Chronic kidney disease, stage 3 unspecified; E78.5 Hyperlipidemia, unspecified; R73.03 Prediabetes; E03.9 Hypothyroidism, unspecified
CPT/HCPCS: 36415; 80053; 80061; 81001; 82043; 82306; 82570; 83036; 83970; 84443; 84550; 85025